=== PATIENT | female | born 1965 | race Caucasian/White ===

== ENCOUNTER 2022-04-22 18:51 | Emergency (ER) | payer MEDICAID, OTHER ==
[~2022-04-22] VITALS: Ht 152.4 cm; Wt 65.0 kg
[2022-04-22] MEDS ORDERED: IBUPROFEN 600MG TABLET PO STA (19:44)
[2022-04-22] MEDS ORDERED: IBUPROFEN 600MG TABLET PO NR (22:00)
[2022-04-22 22:45] LABS: CLARITY URINE CLEAR (CLEAR); COLOR URINE YELLOW (YELLOW); KETONES URINE NEGATIVE (NEGATIVE); LEUKOCYTE ESTERASE URINE NEGATIVE (NEGATIVE); NITRITE URINE NEGATIVE (NEGATIVE); OCCULT BLOOD URINE NEGATIVE (NEGATIVE); PH URINE 5.5 (4.5-8.0); PROTEIN URINE NEGATIVE (NEGATIVE); SPECIFIC GRAVITY URINE 1.017 (1.005-1.030); UROBILINOGEN URINE 0.2 E.U./dL (0.2-1.0)
[2022-04-22] MEDS ORDERED: IBUP-2029 MT (22:55)
[2022-04-22] MEDS ORDERED: CYCL10TA21 MT (22:55)
[2022-04-22 23:11] VITALS: BP 120/78
== END 2022-04-22 23:10 | disposition home or self-care (01) ==
LOC: ER 18:51
DX: R10.9 Unspecified abdominal pain (principal); E78.00 Pure hypercholesterolemia, unspecified; Z86.39 Personal history of other endocrine, nutritional and metabolic disease
CPT/HCPCS: 74176; 81003; 81025; 99285